=== PATIENT | female | born 2000 ===

== ENCOUNTER 2021-12-06 17:38 | Inpatient (IN) | payer OTHER ==
[~2021-12-06] VITALS: Ht 175.3 cm; Wt 74.8 kg
[2021-12-07] MEDS ORDERED: PRENATAL TABLE1 EAC2 PO (10:32)
== END 2021-12-14 21:56 | disposition home or self-care (01) | DRG 831 ==
LOC: LDR 17:38
PROVIDERS: ADMIT Obstetrics & Gynecology Obstetrics; ATTEND Obstetrics & Gynecology Obstetrics
PROC: 4A1HXCZ Monitoring of Products of Conception, Cardiac Rate, External Approach (ICD-10-PCS; principal; 2021-12-06)
PROC: 8E0ZXY6 Isolation (ICD-10-PCS; 2021-12-06)
PROC: BY4FZZZ Ultrasonography of Third Trimester, Single Fetus (ICD-10-PCS; 2021-12-08)
PROC: 4A1HXCZ Monitoring of Products of Conception, Cardiac Rate, External Approach (ICD-10-PCS; 2021-12-09)
PROC: 3E0F7GC Introduction of Other Therapeutic Substance into Respiratory Tract, Via Natural or Artificial Opening (ICD-10-PCS; 2021-12-10)
DX: O47.03 False labor before 37 completed weeks of gestation, third trimester (principal); U07.1 COVID-19; O98.513 Other viral diseases complicating pregnancy, third trimester; Z3A.35 35 weeks gestation of pregnancy; Z20.822 Contact with and (suspected) exposure to COVID-19; O26.893 Other specified pregnancy related conditions, third trimester; R09.02 Hypoxemia

== ENCOUNTER 2021-12-24 21:20 | Inpatient (IN) | payer OTHER ==
[~2021-12-24] VITALS: Ht 152.4 cm; Wt 74.8 kg
[~2021-12-24 21:20] MED LIST: PRENATAL TABLE1 EAC2 PO
== END 2021-12-31 12:40 | disposition home or self-care (01) | DRG 806 ==
LOC: LDR 21:20 → OB/GYN 21:20
PROVIDERS: ADMIT Obstetrics & Gynecology Obstetrics; ATTEND Obstetrics & Gynecology Obstetrics
PROC: 4A1HXCZ Monitoring of Products of Conception, Cardiac Rate, External Approach (ICD-10-PCS; 2021-12-24)
PROC: 10E0XZZ Delivery of Products of Conception, External Approach (ICD-10-PCS; principal; 2021-12-29)
DX: O47.1 False labor at or after 37 completed weeks of gestation (principal); O23.33 Infections of other parts of urinary tract in pregnancy, third trimester; Z37.0 Single live birth; N39.0 Urinary tract infection, site not specified; Z3A.37 37 weeks gestation of pregnancy; Z20.822 Contact with and (suspected) exposure to COVID-19